=== PATIENT | female | born 1945 | race Caucasian/White ===

== ENCOUNTER → 2024-02-22 11:10 | Outpatient (REF) | payer MEDICARE, OTHER, SELFPAY | LOC: RCS 11:10 | PROVIDERS: ATTENDING PHYSICIAN Internal Medicine; FAMILY PHYSICIAN Family Medicine; REFERRING PHYSICIAN Internal Medicine Nephrology | DX: I35.0 Nonrheumatic aortic (valve) stenosis (principal) | CPT/HCPCS: 93306 ==

== ENCOUNTER 2024-08-04 11:54 | Outpatient (RCR) | payer MEDICARE, OTHER, SELFPAY | END 2024-08-04 23:59 | disposition home or self-care (01) | LOC: CRHB 11:54 | PROVIDERS: ATTENDING PHYSICIAN Internal Medicine; FAMILY PHYSICIAN Family Medicine | DX: I25.10 Atherosclerotic heart disease of native coronary artery without angina pectoris (principal); Z95.4 Presence of other heart-valve replacement | CPT/HCPCS: G0422; G0423 ==

== ENCOUNTER 2024-09-04 11:56 | Outpatient (RCR) | payer MEDICARE, OTHER, SELFPAY | END 2024-09-04 23:59 | disposition home or self-care (01) | LOC: CRHB 11:56 | PROVIDERS: ATTENDING PHYSICIAN Internal Medicine; FAMILY PHYSICIAN Family Medicine | DX: I25.10 Atherosclerotic heart disease of native coronary artery without angina pectoris (principal); Z95.3 Presence of xenogenic heart valve | CPT/HCPCS: 93005; G0422; G0423 ==

== ENCOUNTER 2024-10-02 13:12 | Outpatient (RCR) | payer MEDICARE, OTHER, SELFPAY | END 2024-10-02 23:59 | disposition home or self-care (01) | LOC: CRHB 13:12 | PROVIDERS: ATTENDING PHYSICIAN Internal Medicine; FAMILY PHYSICIAN Family Medicine | DX: Z95.3 Presence of xenogenic heart valve (principal); I25.10 Atherosclerotic heart disease of native coronary artery without angina pectoris | CPT/HCPCS: G0422; G0423 ==

== ENCOUNTER 2024-10-25 11:24 | Outpatient (RCR) | payer MEDICARE, OTHER, SELFPAY | END 2024-10-25 23:59 | disposition home or self-care (01) | LOC: CRHB 11:24 | PROVIDERS: ATTENDING PHYSICIAN Internal Medicine; FAMILY PHYSICIAN Family Medicine | DX: Z95.4 Presence of other heart-valve replacement (principal) | CPT/HCPCS: 36415; 80053; 80061; G0422; G0423 ==

== ENCOUNTER 2024-11-22 11:21 | Outpatient (RCR) | payer MEDICARE, OTHER, SELFPAY | END 2024-11-22 17:58 | disposition home or self-care (01) | LOC: CRHB 11:21 | PROVIDERS: ATTENDING PHYSICIAN Internal Medicine; FAMILY PHYSICIAN Family Medicine | DX: Z95.4 Presence of other heart-valve replacement (principal) | CPT/HCPCS: G0422; G0423 ==

== ENCOUNTER → 2024-12-29 09:30 | Outpatient (REF) | payer MEDICARE, OTHER, SELFPAY | LOC: RCS 09:30 | PROVIDERS: ATTENDING PHYSICIAN Internal Medicine; FAMILY PHYSICIAN Family Medicine | DX: Z95.2 Presence of prosthetic heart valve (principal); I10 Essential (primary) hypertension; I44.7 Left bundle-branch block, unspecified; I25.10 Atherosclerotic heart disease of native coronary artery without angina pectoris | CPT/HCPCS: 93306 ==